=== PATIENT | male | born 1945 | race Caucasian/White ===

== ENCOUNTER 2021-04-13 09:13 | Emergency (ER) | payer OTHER ==
[~2021-04-13] VITALS: Ht 182.9 cm; Wt 81.6 kg
[2021-04-13] MEDS ORDERED: GLUMETZA1000 MG PO (09:30)
[2021-04-13] MEDS ORDERED: AMLODIPINE-OLM1 EAC2 PO (09:30)
[2021-04-13] MEDS ORDERED: ATORVASTATIN CA20 MG PO (09:30)
[2021-04-13] MEDS ORDERED: ELIQUIS2.5 MG PO (09:31)
[2021-04-13] MEDS ORDERED: TOPROL XL25 M1 PO (09:31)
[2021-04-13] MEDS ORDERED: PIOGLITAZ-GLIM1 EAC1 PO (09:32)
== END 2021-04-13 11:25 | disposition home or self-care (01) ==
LOC: ER 09:13
DX: J44.9 Chronic obstructive pulmonary disease, unspecified (principal); I10 Essential (primary) hypertension; E11.9 Type 2 diabetes mellitus without complications